=== PATIENT | male | born 1960 | race African-American/Black ===

== ENCOUNTER 2024-07-26 10:17 | Emergency (ER) | payer MEDICARE, OTHER ==
[~2024-07-26] VITALS: Ht 167.6 cm; Wt 86.2 kg
[2024-07-26 10:44] VITALS: BP 131/71; TEMP 97.9
[2024-07-26] MEDS ORDERED: KETOROLAC TROMETHAMINE INJ 30 MG/ML VIAL ONE (11:41)
[2024-07-26] MEDS ORDERED: ACETAMINOPHEN 325 MG TABLET ONE (11:41)
[2024-07-26] MEDS: KETOROLAC TROMETHAMINE INJ 30 MG/ML VIAL IM ONE (11:47)
[2024-07-26] MEDS: ACETAMINOPHEN 325 MG TABLET PO ONE (11:47)
[2024-07-26 12:31] VITALS: O2SAT 98
== END 2024-07-26 12:32 | disposition home or self-care (01) ==
LOC: ER 10:24
DX: M25.511 Pain in right shoulder (principal); M19.011 Primary osteoarthritis, right shoulder
CPT/HCPCS: 73030; 96372; 99283; J1885